=== PATIENT | female | born 1990 | race Caucasian/White ===

== ENCOUNTER 2017-12-16 14:50 | Emergency (ER) | payer BC, OTHER ==
[2017-12-16 14:51] VITALS: BMI 31.3
[2017-12-16 14:58] VITALS: BP 149/88; PULSE 101; RESP 16; TEMP 98.3; O2SAT 99
--- NOTE | 2017-12-16 15:13 | ED PDOC ---
HPI: CCC, URI, Sore Throat Time Seen by Provider: 12/16/17 15:00 Chief Complaint (Nursing): Flu-like Symptoms Chief Complaint (Provider): Flu-like symptoms History Per: Patient History/Exam Limitations: no limitations Onset/Duration Of Symptoms: Days (x1) Current Symptoms Are (Timing): Still Present Location Of Pain: Throat Sick Contacts (Context): Individual(s) At Work Associated Symptoms: Fever, Sore Throat, Nasal Congestion, Other (chest pain and back pain) Ear Symptoms: Bilateral: None Additional Complaint(s): Rosibel Astorga is a 27 year old female, with no significant past medical history , who presents to the emergency department complaining of fever, sore throat, nose congestion, chest and back pain onset since yesterday. Patient states she was sent home from work after she felt hot and developed a fever. 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 She took Motrin with some relief of symptoms. She denies any cough, ear pain, vomiting or other medical complaints. PMD: Tash Winchester Past Medical History Reviewed: Historical Data, Nursing Documentation, Vital Signs Vital Signs: Last Vital Signs Temp 98.3 F 12/16/17 14:55 Pulse 101 H 12/16/17 14:55 Resp 16 12/16/17 14:55 BP 149/88 12/16/17 14:55 Pulse Ox 99 12/16/17 16:35 - Medical History PMH: No Chronic Diseases - Surgical History Surgical History: No Surg Hx - Family History Family History: States: Unknown Family Hx - Immunization History Hx Tetanus Toxoid Vaccination: Yes Hx Influenza Vaccination: No Hx Pneumococcal Vaccination: No - Home Medications Home Medications: Ambulatory Orders Medication Instructions Recorded Oseltamivir Phosphate [Tamiflu] 75 mg PO BID #10 capsule 12/16/17 - Allergies Allergies/Adverse Reactions: Allergies Allergy/AdvReac Type Severity Reaction Status Date / Time No Known Allergies Allergy Verified 06/26/16 08:45 Review of Systems ROS Statement: Except As Marked, All Systems Reviewed And Found Negative Constitutional: Positive for: Fever ENT: Positive for: Nose Congestion, Throat Pain Cardiovascular: Positive for: Chest Pain Musculoskeletal: Positive for: Back Pain Physical Exam - Reviewed Nursing Documentation Reviewed: Yes Vital Signs Reviewed: Yes - Physical Exam Appears: Positive for: Well, Non-toxic, No Acute Distress Head Exam: Positive for: ATRAUMATIC, NORMAL INSPECTION, NORMOCEPHALIC Skin: Positive for: Normal Color, Warm, Dry Eye Exam: Positive for: Normal appearance, EOMI, PERRL ENT: Positive for: Sinus Pain/Drainage (drainage post nasal pharynx.), Other ( uvula mildly edemic and centerline) Neck: Positive for: Painless ROM, Supple Cardiovascular/Chest: Positive for: Regular Rate, Rhythm. Negative for: Murmur Respiratory: Positive for: Normal Breath Sounds (clear auscultation b/l). Negative for: Respiratory Distress Back: Positive for: Normal Inspection. Negative for: L CVA Tenderness, R CVA Tenderness Extremity: Positive for: Normal ROM. Negative for: Tenderness, Deformity, Swelling Lymphatic: Positive for: Other (cervical nodes normal.) Neurologic/Psych: Positive for: Alert, Oriented - ECG O2 Sat by Pulse Oximetry: 99 (RA) Pulse Ox Interpretation: Normal Medical Decision Making Medical Decision Making: Initial Impression: URI Initial Plan: --Reevaluation ~ Scribe Attestation: Documented by Heath Bailey, acting as a scribe for Travis Ocampo PA-C. Provider Scribe Attestation: All medical record entries made by the Scribe were at my direction and personally dictated by me. I have reviewed the chart and agree that the record accurately reflects my personal performance of the history, physical exam, medical decision making, and the department course for this patient. I have also personally directed, reviewed, and agree with the discharge instructions and disposition. Disposition - Clinical Impression Clinical Impression: Influenza-like symptoms, Upper respiratory infection - Disposition Disposition Time: 15:45 Condition: GOOD Additional Instructions: REST FLUIDS DAYQUIL NYQUIL CHICKEN SOUP Prescriptions: Oseltamivir Phosphate [Tamiflu] 75 mg PO BID #10 capsule Forms: [employer] (Mozambican), [facility] ED School/Work Excuse
== END 2017-12-16 15:50 | disposition home or self-care (01) ==
LOC: H.ER 14:50
DX: J11.1 Influenza due to unidentified influenza virus with other respiratory manifestations (principal); J06.9 Acute upper respiratory infection, unspecified

== ENCOUNTER 2017-12-25 09:44 | Emergency (ER) | payer BC ==
[2017-12-25 09:44] VITALS: BMI 31.3
[2017-12-25] MEDS ORDERED: Alum-Mag Hydrox-Simethicone Susp (30 mL) PO ONE (10:31)
[2017-12-25] MEDS ORDERED: Sodium Chloride 0.9% 1,000 ML IV STA (10:31)
[2017-12-25] MEDS ORDERED: Alum-Mag Hydrox-Simethicone Susp (30 mL) ONE (10:42)
[2017-12-25 10:58] LABS: ALB/GLOB RATIO 1.1 (1.0-2.1); ALBUMIN 3.9 g/dL (3.5-5.0); ALT/SGPT 35 U/L (9-52); AST/SGOT 22 U/L (14-36); BASO % 0.2 % (0.0-2.0); BLOOD UREA NITROGEN 8 mg/dl (7-17); CALCIUM 8.8 mg/dL (8.4-10.2); EOS % 0.2 % (0.0-4.0); GFR AFRICAN-AMERICAN > 60; GFR NON-AFRICAN AMERICAN > 60; HEMOGLOBIN 14.7 g/dL (12.0-16.0); LIPASE 19 U/L (23-300); LYMPH # 0.8 K/uL (1.0-4.3); MEAN CELL VOLUME 88.6 fl (81.0-99.0); MEAN CORPUSCULAR HEMOGLOBIN 30.6 pg (27.0-31.0); MEAN CORPUSCULAR HGB CONC 34.5 g/dL (33.0-37.0); MEAN PLATELET VOLUME 8.4 fl (7.2-11.7); MONO # 0.6 K/uL (0.0-0.8); MONO % 7.5 % (0.0-10.0); NEUT # 6.7 K/uL (1.8-7.0); NEUT % 82.1 % (50.0-75.0); NRBC % 0.1 % (0.0-0.0); RBC 4.79 Mil/uL (3.80-5.20); RED CELL DISTRIBUTION WIDTH 12.6 % (11.5-14.5); WHITE BLOOD COUNT 8.1 K/uL (4.8-10.8)
[2017-12-25 11:02] LABS: URINE BACTERIA OCC (<OCC); URINE BILIRUBIN NEGATIVE (NEGATIVE); URINE BLOOD NEGATIVE (NEGATIVE); URINE CLARITY CLOUDY (Clear); URINE COLOR YELLOW (YELLOW); URINE GLUCOSE (UA) NEG (Normal); URINE LEUKOCYTE ESTERASE MOD Leu/uL (Negative); URINE PROTEIN NEGATIVE (NEGATIVE); URINE UROBILINOGEN 0.2-1.0 mg/dL (0.2-1.0)
[2017-12-25 11:18] LABS: RENAL EPITHELIAL 3 /hpf (0-3); SQUAMOUS EPITHIAL 50 /hpf (0-5)
--- NOTE | 2017-12-25 11:31 | ED PDOC ---
HPI: Abdomen Time Seen by Provider: 12/25/17 10:01 Chief Complaint (Nursing): Abdominal Pain Chief Complaint (Provider): abdominal pain, vomiting History Per: Patient History/Exam Limitations: no limitations Onset/Duration Of Symptoms: Days (1) Current Symptoms Are (Timing): Still Present Context: Food Severity: Moderate Location Of Pain/Discomfort: RUQ, Epigastric Quality Of Discomfort: Sharp, Cramping Associated Symptoms: Nausea, Vomiting, Loss Of Appetite, Constipation. denies: Diarrhea, Urinary Symptoms Exacerbating Factors: None Alleviating Factors: None Last Bowel Movement: Days Ago (2) Additional Complaint(s): 27yo female c/o upper abdominal pain sharp/crampy discomfort associated with nonbloody vomiting and chills since last night. Denies history of similar pain. Concerned as her brother recently had his gallbladder out. Denies change in skin color or yellowing of eyes. Denies diarrhea, admits to some mild constipation. Denies alcohol or NSAID abuse. Past Medical History Reviewed: Historical Data, Nursing Documentation, Vital Signs Vital Signs: Last Vital Signs Temp 98.4 F 12/25/17 14:12 Pulse 97 H 12/25/17 14:12 Resp 18 12/25/17 09:58 BP 120/60 12/25/17 14:12 Pulse Ox 97 12/25/17 14:12 - Medical History PMH: No Chronic Diseases - Family History Family History: States: Unknown Family Hx - Living Arrangements Living Arrangements: With Family - Social History Current smoker - smoking cessation education provided: No - Immunization History Hx Tetanus Toxoid Vaccination: Yes Hx Influenza Vaccination: No Hx Pneumococcal Vaccination: No - Home Medications Home Medications: Ambulatory Orders Medication Instructions Recorded Oseltamivir Phosphate [Tamiflu] 75 mg PO BID #10 capsule 12/16/17 Fluconazole [Diflucan] 150 mg PO ONCE #1 tab 12/25/17 Ranitidine HCl [Zantac] 150 mg PO BID #20 tablet 12/25/17 - Allergies Allergies/Adverse Reactions: Allergies Allergy/AdvReac Type Severity Reaction Status Date / Time No Known Allergies Allergy Verified 06/26/16 08:45 Review of Systems ROS Statement: Except As Marked, All Systems Reviewed And Found Negative Constitutional: Positive for: Chills. Negative for: Fever Cardiovascular: Negative for: Chest Pain, Palpitations Respiratory: Negative for: Cough, Shortness of Breath Gastrointestinal: Positive for: Nausea, Vomiting, Abdominal Pain, Constipation. Negative for: Diarrhea, Hematochezia, Hematemesis Genitourinary Female: Negative for: Dysuria Musculoskeletal: Negative for: Neck Pain, Back Pain Skin: Negative for: Rash, Lesions, Jaundice Neurological: Negative for: Weakness, Headache, Dizziness Psych: Negative for: Depression Physical Exam - Reviewed Nursing Documentation Reviewed: Yes Vital Signs Reviewed: Yes - Physical Exam Appears: Positive for: Well, Non-toxic, No Acute Distress Head Exam: Positive for: ATRAUMATIC, NORMAL INSPECTION, NORMOCEPHALIC Skin: Positive for: Normal Color, Warm, DRY Eye Exam: Positive for: Normal appearance, EOMI, PERRL. Negative for: Scleral icterus ENT: Positive for: Normal ENT Inspection Neck: Positive for: Normal, Painless ROM Cardiovascular/Chest: Positive for: Regular Rate, Rhythm Respiratory: Positive for: CNT, Normal Breath Sounds Gastrointestinal/Abdominal: Positive for: Bowel Sounds, Soft, Tenderness (RUQ/ epigastric). Negative for: Guarding, Rebound Pelvic Exam: Positive for: External Exam Normal, Other (homogenous white thick discharge). Negative for: Tender Uterus, Ulcers Back: Positive for: Normal Inspection Extremity: Positive for: Normal ROM Neurologic/Psych: Positive for: Alert, Oriented - Laboratory Results Result Diagrams: 12/25/17 10:30 12/25/17 10:30 Urine POC: Negative Urine dip results: Positive for: Leukocyte Esterase (TR). Negative for: Blood - ECG O2 Sat by Pulse Oximetry: 100 Pulse Ox Interpretation: Normal Medical Decision Making Medical Decision Making: workup for upper abd pain initiated HCG neg bloodwork and US ordered, pepcid and maalox, IVF for symptoms labs unremarkable including cbc, lfts and chem US abdomen no gallstones, echogenicity of liver Accession No. : [id number] Patient Name / ID : BINU MURGUIA / [id number] Exam Date : 12/25/2017 11:20:45 ( Approved ) Study Comment : Sex / Age : F / 27Y Creator : Yolanda Horan MD Dictator : Yolanda Horan MD Account Manager B2B : Certified Hand Therapist : Yolanda Horan MD Approver2 : Report Date : 12/25/2017 12:07:53 My Comment : HISTORY: RUQ; epigastric and RUQ pain COMPARISON: None. TECHNIQUE: Grayscale imaging was performed. FINDINGS: LIVER: Measures 13.1 cm in length. There is diffuse increased echogenicity with heterogeneous echotexture. No mass. No intrahepatic bile duct dilatation. GALLBLADDER: There are no gallstones, wall thickening or pericholecystic fluid. The sonographic Dickson's sign is negative. COMMON BILE DUCT: Measures 1.3 mm. No stones. No dilatation. PANCREAS: Unremarkable as visualized. No mass. No ductal dilatation. RIGHT KIDNEY: Measures 10.2 cm in length. Normal echogenicity. No calculus, mass, or hydronephrosis. AORTA: No aneurysmal dilatation. IVC: Unremarkable. OTHER FINDINGS: None . IMPRESSION: Diffuse increased echogenicity in the liver may reflect hepatic steatosis however parenchymal infectious/ inflammatory etiologies cannot be entirely excluded. Clinical and laboratory correlation is advised. No cholelithiasis or biliary dilatation. CT was ordered to r/o other abdominal process not seen on US but patient refused , stated was feeling better and had to order picker/assembler her kids. Understood risks of refusing or delaying CT including delayed diagnosis of potentially serious or surgical pathology. treat for vaginal candidiasis, check STD panel does not want empiric treatment now, will followup for results Disposition - Clinical Impression Clinical Impression: Abdominal pain, Vaginal candidiasis - Patient ED Disposition Is Patient to be Admitted: No Counseled Patient/Family Regarding: Studies Performed, Diagnosis, Need For Followup, Rx Given - Disposition Referrals: Tash Winchester MD [Primary Care Provider] - Disposition: Routine/Home Disposition Time: 16:01 Condition: STABLE Additional Instructions: Followup with Dr Winchester for further testing and possible referral to Gastroenterology. Return to ER for any worse symptoms. Prescriptions: Fluconazole [Diflucan] 150 mg PO ONCE #1 tab Ranitidine HCl [Zantac] 150 mg PO BID #20 tablet Instructions: Vulvovaginal Yeast Infection, Acute Abdomen (Belly Pain), Adult ( DC) Forms: [employer] (Ukrainian)
--- NOTE | 2017-12-25 12:09 | US ---
HISTORY: RUQ; epigastric and RUQ pain COMPARISON: None. TECHNIQUE: Grayscale imaging was performed. FINDINGS: LIVER: Measures 13.1 cm in length. There is diffuse increased echogenicity with heterogeneous echotexture. No mass. No intrahepatic bile duct dilatation. GALLBLADDER: There are no gallstones, wall thickening or pericholecystic fluid. The sonographic Dickson's sign is negative. COMMON BILE DUCT: Measures 1.3 mm. No stones. No dilatation. PANCREAS: Unremarkable as visualized. No mass. No ductal dilatation. RIGHT KIDNEY: Measures 10.2 cm in length. Normal echogenicity. No calculus, mass, or hydronephrosis. AORTA: No aneurysmal dilatation. IVC: Unremarkable. OTHER FINDINGS: None . IMPRESSION: Diffuse increased echogenicity in the liver may reflect hepatic steatosis however parenchymal infectious/ inflammatory etiologies cannot be entirely excluded. Clinical and laboratory correlation is advised. No cholelithiasis or biliary dilatation.
[2017-12-25 12:42] VITALS: RESP 18
[2017-12-25 14:13] VITALS: BP 120/60; PULSE 97; TEMP 98.4
[2017-12-25] MEDS ORDERED: Iohexol 240 (50 ml) PO ONE (14:18)
[2017-12-25 16:24] VITALS: O2SAT 100
== END 2017-12-25 16:24 | disposition home or self-care (01) ==
LOC: H.ER 09:44 → SUPCPDRO 09:44 → H.ER 16:24
DX: B37.3 Candidiasis of vulva and vagina (principal)
CPT/HCPCS: 76705; 80053; 81003; 81025; 83690; 85025; 87070; 87491; 87591; 99285; J7040

== ENCOUNTER 2018-04-05 21:22 | Emergency (ER) | payer BC, OTHER ==
[2018-04-05 21:22] VITALS: BMI 31.3
[2018-04-05 21:49] VITALS: BP 117/70; PULSE 80; RESP 16; TEMP 98.2; O2SAT 99
--- NOTE | 2018-04-05 21:53 | ED PDOC ---
HPI: Back Time Seen by Provider: 04/05/18 21:50 Chief Complaint (Nursing): Back Pain Chief Complaint (Provider): Back Pain History Per: Patient History/Exam Limitations: no limitations Onset/Duration Of Symptoms: Days (x3) Current Symptoms Are (Timing): Still Present Quality Of Discomfort: Sharp Associated Symptoms: None Additional Complaint(s): Patient is a 27 year old female who present to ED with complaints of lower back pain x3 days, radiating to the left leg. Patient states this is her third time experiencing these symptoms since the year started. Patient denies any trauma or falls. Patient reports prior episodes resolved with icyhot and applying heat at home. Patient reports home remedies did not provide relief this time. Patient notes she last took Tylenol yesterday. Pain worsens with movement. No other complaints at present. Denies: weakness, numbness, fever, chills, urinary symptoms, abdominal pain, N/V/D, saddle anesthesia, incontinence, chest pain, SOB. PMD: Arden Winchester LMP: 2 weeks ago Past Medical History Reviewed: Historical Data, Nursing Documentation, Vital Signs Vital Signs: Last Vital Signs Temp 98.2 F 04/05/18 21:47 Pulse 80 04/05/18 21:47 Resp 16 04/05/18 21:47 BP 117/70 04/05/18 21:47 Pulse Ox 99 04/05/18 21:47 - Medical History PMH: No Chronic Diseases - Surgical History Surgical History: No Surg Hx - Family History Family History: States: Unknown Family Hx - Social History Current smoker - smoking cessation education provided: Yes (6cigs/day) Alcohol: Social Drugs: Denies - Home Medications Home Medications: Ambulatory Orders Medication Instructions Recorded Oseltamivir Phosphate [Tamiflu] 75 mg PO BID #10 capsule 12/16/17 Fluconazole [Diflucan] 150 mg PO ONCE #1 tab 12/25/17 Ranitidine HCl [Zantac] 150 mg PO BID #20 tablet 12/25/17 Cyclobenzaprine [Cyclobenzaprine 10 mg PO Q8 PRN #12 tab 04/05/18 HCl] Naproxen 500 mg PO BID PRN #20 tab 04/05/18 - Allergies Allergies/Adverse Reactions: Allergies Allergy/AdvReac Type Severity Reaction Status Date / Time No Known Allergies Allergy Verified 06/26/16 08:45 Review of Systems ROS Statement: Except As Marked, All Systems Reviewed And Found Negative Musculoskeletal: Positive for: Back Pain Physical Exam - Reviewed Nursing Documentation Reviewed: Yes Vital Signs Reviewed: Yes - Physical Exam Appears: Positive for: Well, Non-toxic, No Acute Distress Head Exam: Positive for: ATRAUMATIC, NORMOCEPHALIC Skin: Positive for: Normal Color, Warm, Dry Eye Exam: Positive for: EOMI, PERRL ENT: Positive for: Other (Mucus membranes moist. Airway patent, (-) stridor. ) Neck: Positive for: Painless ROM, Supple Cardiovascular/Chest: Positive for: Regular Rate, Rhythm Respiratory: Positive for: Normal Breath Sounds (Speaking in full sentences, respirations even and nonlabored.) Back: Positive for: Vertebral Tenderness, Muscle Spasm (left lumbar), Other ( left paralumbar tenderness. (+) left sided straight leg raise at 20 degrees.). Negative for: L CVA Tenderness, R CVA Tenderness Extremity: Positive for: Normal ROM. Negative for: Pedal Edema, Calf Tenderness , Deformity Neurologic/Psych: Positive for: Alert, Oriented (x3), Gait (steady in ED). Negative for: Aphasia, Facial Droop - Laboratory Results Urine POC: Negative - ECG O2 Sat by Pulse Oximetry: 99 (RA) Pulse Ox Interpretation: Normal Medical Decision Making Medical Decision Makin Initial Impression: Acute back pain, sciatica Plan: -Urine preg test -Toradol 30mg IM -Valium 5mg PO (patient not driving home) -Re-evaluation 2314 On re-evaluation, patient reports improvement of symptoms. Ambulating in ED with steady unassisted gait. On exam, patient remains AAOx3, in no acute distress. Neck is supple, lungs CTA, cardiac RRR, abdomen is soft and non-tender , neuro exam shows no focal findings. VSS, stable for discharge. Diagnostic results d/w the patient in great detail. Dx of acute back pain, sciatica with radicular pain d/w the patient. Based on history, exam and diagnostic results plan will be for discharge and outpatient follow up with PMD/ortho. Advised to follow up with primary care physician in 1-2 days without fail. Advised to take medication as prescribed. Return to the emergency room at any time for any new or worsening symptoms. Patient states she fully agrees with and understands discharge instructions. States that she agrees with the plan and disposition. Verbalized and repeated discharge instructions and plan. I have given the patient opportunity to ask any additional questions. Disposition - Clinical Impression Clinical Impression: Low back pain, Sciatica of left side, Radicular pain - Patient ED Disposition Is Patient to be Admitted: No Counseled Patient/Family Regarding: Diagnosis, Need For Followup, Rx Given - Disposition Referrals: Peggy Hadley MD [Staff Provider] - Tash Winchester MD [Family Provider] - Disposition: Routine/Home Disposition Time: 23:18 Condition: STABLE Additional Instructions: FOLLOW UP WITH PMD/ORTHO/CLINIC IN 1-2 DAYS WITHOUT FAIL RETURN TO ED WITH ANY NEW OR WORSENING SYMPTOMS. TAKE MEDICATION PRESCRIBED NEEDED FOR SYMPTOMS. Prescriptions: Cyclobenzaprine [Cyclobenzaprine HCl] 10 mg PO Q8 PRN #12 tab PRN Reason: Muscle Spasm Naproxen 500 mg PO BID PRN #20 tab PRN Reason: Pain, Moderate (4-7) Instructions: Sciatica, Low Back Pain in Adults, Radiculopathy (DC), Sciatica Exercises, Do I Need an X-ray (or Other Test) for Low Back Pain? Forms: [employer] (Yi) Print Language: THAI - POA Present On Arrival: None
== END 2018-04-05 23:31 | disposition home or self-care (01) ==
LOC: H.ER 21:22
DX: M54.42 Lumbago with sciatica, left side (principal)
CPT/HCPCS: 81025; 96372; 99283; J1885

== ENCOUNTER 2018-09-17 09:02 | Emergency (ER) | payer BC, OTHER ==
[2018-09-17 09:12] VITALS: BMI 26.7
[2018-09-17] MEDS ORDERED: Iohexol 240 (50 ml) PO ONE (09:22)
[2018-09-17] MEDS ORDERED: Iohexol 240 (50 ml) ONE (10:04)
[2018-09-17 10:23] LABS: BASO % 0.2 % (0.0-2.0); EOS # 0.1 K/uL (0.0-0.7); EOS % 0.8 % (0.0-4.0); HEMOGLOBIN 14.5 g/dL (12.0-16.0); LYMPH # 0.8 K/uL (1.0-4.3); LYMPH % 6.4 % (20.0-40.0); MEAN CELL VOLUME 91.1 fl (81.0-99.0); MEAN CORPUSCULAR HEMOGLOBIN 29.7 pg (27.0-31.0); MEAN CORPUSCULAR HGB CONC 32.6 g/dL (33.0-37.0); MEAN PLATELET VOLUME 8.7 fl (7.2-11.7); MONO # 0.6 K/uL (0.0-0.8); MONO % 4.6 % (0.0-10.0); NEUT # 10.9 K/uL (1.8-7.0); PLATELET COUNT 236 K/uL (130-400); RBC 4.87 Mil/uL (3.80-5.20); WHITE BLOOD COUNT 12.4 K/uL (4.8-10.8)
[2018-09-17] MEDS ORDERED: Sodium Chloride 0.9% 1,000 ML IV STA (10:34)
--- NOTE | 2018-09-17 10:41 | ED PDOC ---
HPI: Abdomen Time Seen by Provider: 09/17/18 09:18 Chief Complaint (Nursing): Abdominal Pain Chief Complaint (Provider): Abdominal Pain History Per: Patient History/Exam Limitations: no limitations Onset/Duration Of Symptoms: Days (x2) Current Symptoms Are (Timing): Still Present Additional Complaint(s): 28 year old female, prior well, presents to the ED with a complaint of multiple episodes of vomiting and diarrhea associated with abdominal pain and distention since yesterday. 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 Patient additionally reports that she possibly saw blood in her stools, thus, prompting ED visit. Otherwise, she denies any fever, chills, weakness, dizziness, rash, or headache. LMP: 2 weeks ago. PCP: Dr. Tash Winchester Past Medical History Reviewed: Historical Data, Nursing Documentation, Vital Signs Vital Signs: Last Vital Signs Temp 97.4 F L 09/17/18 09:10 Pulse 113 H 09/17/18 09:10 Resp 18 09/17/18 09:10 BP 139/80 09/17/18 09:10 Pulse Ox 99 09/17/18 09:10 - Medical History PMH: No Chronic Diseases - Surgical History Surgical History: No Surg Hx - Family History Family History: States: Unknown Family Hx - Immunization History Hx Tetanus Toxoid Vaccination: Yes Hx Influenza Vaccination: No Hx Pneumococcal Vaccination: No - Home Medications Home Medications: Ambulatory Orders Medication Instructions Recorded Cephalexin [cephalexin] 500 mg PO TID #15 cap 09/17/18 Dicyclomine [Dicyclomine HCl] 10 mg PO TID PRN #12 cap 09/17/18 Ibuprofen [Motrin Tab] 600 mg PO Q6 PRN #15 tab 09/17/18 Ondansetron ODT [Zofran ODT] 4 mg PO Q6 PRN #10 odt 09/17/18 - Allergies Allergies/Adverse Reactions: Allergies Allergy/AdvReac Type Severity Reaction Status Date / Time No Known Allergies Allergy Verified 09/17/18 09:24 Review of Systems ROS Statement: Except As Marked, All Systems Reviewed And Found Negative Constitutional: Negative for: Fever, Chills Gastrointestinal: Positive for: Vomiting, Abdominal Pain (with distention), Diarrhea, Hematochezia (possible small amount) Skin: Negative for: Rash Neurological: Negative for: Weakness, Headache, Dizziness Physical Exam - Reviewed Nursing Documentation Reviewed: Yes Vital Signs Reviewed: Yes - Physical Exam Appears: Positive for: No Acute Distress Head Exam: Positive for: ATRAUMATIC, NORMAL INSPECTION, NORMOCEPHALIC Skin: Positive for: Normal Color Eye Exam: Positive for: Normal appearance ENT: Positive for: Normal ENT Inspection. Negative for: Pharyngeal Erythema Neck: Positive for: Normal Cardiovascular/Chest: Positive for: Regular Rate, Rhythm Respiratory: Positive for: Normal Breath Sounds. Negative for: Respiratory Distress Gastrointestinal/Abdominal: Positive for: Bowel Sounds (normal tympanic percussion), Soft, Tenderness (diffuse mildly), Distended Back: Positive for: Normal Inspection. Negative for: L CVA Tenderness, R CVA Tenderness Extremity: Positive for: Normal ROM (upper/lower). Negative for: Pedal Edema Neurologic/Psych: Positive for: Alert, Oriented. Negative for: Motor/Sensory Deficits - Laboratory Results Result Diagrams: 09/17/18 10:10 09/17/18 10:10 Urine POC: Negative - ECG O2 Sat by Pulse Oximetry: 99 (RA) Pulse Ox Interpretation: Normal Medical Decision Making Medical Decision Making: Time: 0950 Initial Plan: Due to distension and presentation, work-up to R/O acute abdomen. * CT ABD/pelvis * Labs * IV fluids * Omnipaque 240 50ml PO * Toradol 15mg IVP * Zofran 4mg IV Time: 1229 --CT ABD/pelvis FINDINGS: LOWER THORAX: The visualized lungs are clear. LIVER: Mild hepatomegaly and fatty liver. Homogeneous enhancement. A subcentimeter subcapsular lesion in the right hepatic lobe may represent a cyst or hemangioma. No mass or ductal dilatation. GALLBLADDER AND BILE DUCTS: Well distended. No calcified gallstones, wall thickening or pericholecystic fluid. PANCREAS: Normal in size with homogeneous enhancement. No gross lesion or ductal dilatation. SPLEEN: Mild splenomegaly. Homogeneous enhancement without focal lesion ADRENALS: No discrete nodule. KIDNEYS AND URETERS: Normal in size with homogeneous enhancement. No hydronephrosis. No solid mass. VASCULATURE: No aortic aneurysm. BOWEL: The small bowel loops are normal in caliber. The colon is grossly normal in appearance. No bowel wall thickening or obstruction. APPENDIX: Normal appendix. PERITONEUM: No free fluid. No free air. LYMPH NODES: No enlarged lymph nodes. BLADDER: There is mild circumferential mural thickening of the urinary bladder wall. REPRODUCTIVE: The uterus is normal in size. BONES: No acute fracture. Within normal limits for the patient's age. OTHER FINDINGS: None. IMPRESSION: No acute abdominal or pelvic abnormality. Mild circumferential mural thickening of the urinary bladder wall is nonspecific and could be related to underdistention however cystitis cannot be entirely excluded. Please correlate with urine analysis. Fatty liver and mild hepatosplenomegaly. re-eval; 2pm improved, no vomiting, cramping mostly resolved. Discussed results at length, has urinary frequency and itching, treat w keflex for simple UTI, followup PMD Dr Winchester. Scribe Attestation: Documented by Edna Mcmillan, acting as a scribe for Gama Salcedo III, DO. Provider Scribe Attestation: All medical record entries made by the Scribe were at my direction and personally dictated by me. I have reviewed the chart and agree that the record accurately reflects my personal performance of the history, physical exam, medical decision making, and the department course for this patient. I have also personally directed, reviewed, and agree with the discharge instructions and disposition. Disposition - Clinical Impression Clinical Impression: Abdominal pain, UTI (urinary tract infection), Nausea vomiting and diarrhea - Patient ED Disposition Is Patient to be Admitted: No Counseled Patient/Family Regarding: Studies Performed, Diagnosis, Need For Followup - Disposition Referrals: Tash Winchester MD [Family Provider] - Disposition: Routine/Home Disposition Time: 13:40 Condition: STABLE Additional Instructions: Gentle diet today and tomorrow, advance as tolerated. Return to ER for any worse pain, fever or any concern. Prescriptions: Cephalexin [cephalexin] 500 mg PO TID #15 cap Dicyclomine [Dicyclomine HCl] 10 mg PO TID PRN #12 cap PRN Reason: Gi Distress Ibuprofen [Motrin Tab] 600 mg PO Q6 PRN #15 tab PRN Reason: Pain, Moderate (4-7) Ondansetron ODT [Zofran ODT] 4 mg PO Q6 PRN #10 odt PRN Reason: Nausea/Vomiting Instructions: Urinary Tract Infections in Adults, Diarrhea in Adolescents and Adults, Nausea and Vomiting, Adult (DC) Forms: [employer] (Swedish), [facility] ED School/Work Excuse
[2018-09-17] MEDS ORDERED: Sodium Chloride 0.9% 50 ML IV ONE (10:46)
[2018-09-17] MEDS ORDERED: Iohexol 300 100 ML IJ ONE (10:47)
[2018-09-17 10:55] LABS: ALB/GLOB RATIO 1.3 (1.0-2.1); ALBUMIN 4.3 g/dL (3.5-5.0); ALT/SGPT 43 U/L (9-52); AST/SGOT 34 U/L (14-36); BLOOD UREA NITROGEN 12 mg/dl (7-17); CALCIUM 9.1 mg/dL (8.4-10.2); GFR NON-AFRICAN AMERICAN > 60; LIPASE 29 U/L (23-300)
[2018-09-17 11:06] LABS: SQUAMOUS EPITHIAL 30 /hpf (0-5); URINE BACTERIA RARE (<OCC); URINE BILIRUBIN NEGATIVE (NEGATIVE); URINE BLOOD NEGATIVE (NEGATIVE); URINE CLARITY CLOUDY (Clear); URINE COLOR YELLOW (YELLOW); URINE GLUCOSE (UA) NEG (NEGATIVE); URINE LEUKOCYTE ESTERASE LARGE Leu/uL (Negative); URINE PROTEIN NEGATIVE (NEGATIVE); URINE UROBILINOGEN 0.2-1.0 mg/dL (0.2-1.0)
[2018-09-17 11:26] LABS: LYMPHOCYTE 5 % (20-50); MONOCYTE 2 % (0-10); NEUTROPHIL 93 % (42-75); PLATELET ESTIMATE NORMAL (NORMAL); TOTAL CELLS COUNTED 100
--- NOTE | 2018-09-17 12:32 | CT ---
Date of service: 09/17/2018 PROCEDURE: CT Abdomen and Pelvis with contrast HISTORY: abdominal pain, distension, vomiting COMPARISON: None available. TECHNIQUE: CT scan of the abdomen and pelvis was performed after administration of intravenous contrast. Oral contrast was administered. Coronal and sagittal reformatted images were obtained. Contrast dose: 95 cc Omnipaque 300 Radiation dose: Total exam DLP = 717.38 mGy-cm. This CT exam was performed using one or more of the following dose reduction techniques: Automated exposure control, adjustment of the mA and/or kV according to patient size, and/or use of iterative reconstruction technique. FINDINGS: LOWER THORAX: The visualized lungs are clear. LIVER: Mild hepatomegaly and fatty liver. Homogeneous enhancement. A subcentimeter subcapsular lesion in the right hepatic lobe may represent a cyst or hemangioma. No mass or ductal dilatation. GALLBLADDER AND BILE DUCTS: Well distended. No calcified gallstones, wall thickening or pericholecystic fluid. PANCREAS: Normal in size with homogeneous enhancement. No gross lesion or ductal dilatation. SPLEEN: Mild splenomegaly. Homogeneous enhancement without focal lesion ADRENALS: No discrete nodule. KIDNEYS AND URETERS: Normal in size with homogeneous enhancement. No hydronephrosis. No solid mass. VASCULATURE: No aortic aneurysm. BOWEL: The small bowel loops are normal in caliber. The colon is grossly normal in appearance. No bowel wall thickening or obstruction. APPENDIX: Normal appendix. PERITONEUM: No free fluid. No free air. LYMPH NODES: No enlarged lymph nodes. BLADDER: There is mild circumferential mural thickening of the urinary bladder wall. REPRODUCTIVE: The uterus is normal in size. BONES: No acute fracture. Within normal limits for the patient's age. OTHER FINDINGS: None. IMPRESSION: No acute abdominal or pelvic abnormality. Mild circumferential mural thickening of the urinary bladder wall is nonspecific and could be related to underdistention however cystitis cannot be entirely excluded. Please correlate with urine analysis. Fatty liver and mild hepatosplenomegaly.
[2018-09-17 14:50] VITALS: BP 126/73; PULSE 92; RESP 16; TEMP 98.2; O2SAT 100
== END 2018-09-17 14:49 | disposition home or self-care (01) ==
LOC: H.ER 09:02
DX: N39.0 Urinary tract infection, site not specified (principal); R10.9 Unspecified abdominal pain; R11.2 Nausea with vomiting, unspecified; R19.7 Diarrhea, unspecified
CPT/HCPCS: 74177; 80053; 81003; 81025; 83690; 85025; 96361; 96374; 96375; 99284; J1885; J2405; J7030; Q9966; Q9967